=== PATIENT | male | born 1965 | race Asian ===

== ENCOUNTER 2019-05-26 09:48 | Outpatient (CLI) | payer BC ==
[~2019-05-26 09:48] MED LIST: ASPI-1100 PO; PRAV20TA4 PO
== END 2019-05-26 23:59 | disposition home or self-care (01) ==
LOC: CT 09:48
PROVIDERS: ATTEND Family Medicine
DX: Z12.2 Encounter for screening for malignant neoplasm of respiratory organs (principal); R91.1 Solitary pulmonary nodule; J84.10 Pulmonary fibrosis, unspecified; K76.0 Fatty (change of) liver, not elsewhere classified; K80.80 Other cholelithiasis without obstruction; Z87.891 Personal history of nicotine dependence
CPT/HCPCS: 71250-TC

== ENCOUNTER 2020-06-03 11:44 | Outpatient (CLI) | payer BC | END 2020-06-03 23:59 | disposition home or self-care (01) | LOC: RAD 11:44 | PROVIDERS: ATTEND Family Medicine | DX: S43.432A Superior glenoid labrum lesion of left shoulder, initial encounter (principal); M75.102 Unspecified rotator cuff tear or rupture of left shoulder, not specified as traumatic; M19.012 Primary osteoarthritis, left shoulder; M51.36 Other intervertebral disc degeneration, lumbar region; M25.512 Pain in left shoulder; M25.551 Pain in right hip; X58.XXXA Exposure to other specified factors, initial encounter; Y93.89 Activity, other specified; Y92.89 Other specified places as the place of occurrence of the external cause; Y99.8 Other external cause status | CPT/HCPCS: 73221-TC; 73502 ==

== ENCOUNTER 2020-06-23 09:42 | Outpatient (CLI) | payer BC ==
[2020-06-23 10:34] LABS: ALBUMIN 3.7 g/dL (3.4-5.0); BILIRUBIN,TOTAL 0.6 mg/dL (0.2-1.0); CALCIUM, SERUM 8.8 mg/dL (8.5-10.1); CREATININE 0.9 mg/dL (0.6-1.3); MAGNESIUM 2.3 mg/dL (1.8-2.4); POTASSIUM 3.7 mmol/L (3.5-5.1); TOTAL PROTEIN, SERUM 7.7 g/dL (6.4-8.2)
[2020-06-23 10:46] LABS: THYROID STIMULATING HORMONE 0.918 uIU/mL (0.358-3.74); URIC ACID 4.9 mg/dL (2.6-7.2)
[2020-06-23 11:05] LABS: BASOPHILS # (AUTO) 0.1 /CMM (0.0-0.2); BASOPHILS % (AUTO) 0.8 % (0.0-2.0); EOSINOPHILS % (AUTO) 3.2 % (0.0-6.0); HEMATOCRIT 48 % (39-51); HEMOGLOBIN 16.1 g/dL (13.5-17.5); LYMPHOCYTES # (AUTO) 2.4 /CMM (0.8-4.8); LYMPHOCYTES % (AUTO) 37.4 % (20.0-44.0); MEAN CORPUSCULAR HGB CONC 34 g/dl (31.0-36.0); MEAN CORPUSCULAR VOLUME 87 fL (80-96); MONOCYTES # (AUTO) 0.5 /CMM (0.1-1.30); MONOCYTES % (AUTO) 7.1 % (2.0-12.0); NEUTROPHILS # (AUTO) 3.4 /CMM (1.8-8.9); NEUTROPHILS % (AUTO) 51.5 % (43.0-81.0); PLATELET COUNT (AUTO) 294 /CMM (150-450); RED BLOOD CELL COUNT(AUTO) 5.48 MIL/uL (4.5-6.0); WHITE BLOOD COUNT (AUTO) 6.6 K/uL (4.3-11.0)
== END 2020-06-23 23:59 | disposition home or self-care (01) ==
LOC: LAB 09:42
PROVIDERS: ATTEND Family Medicine
DX: I10 Essential (primary) hypertension (principal); E55.9 Vitamin D deficiency, unspecified; K76.0 Fatty (change of) liver, not elsewhere classified
CPT/HCPCS: 36415; 80053-TC; 80061-TC; 82306; 82728-TC; 83540-TC; 83735-TC; 84439-TC; 84443-TC; 84550-TC; 85025-TC

== ENCOUNTER 2020-07-12 08:58 | Outpatient (CLI) | payer BC | END 2020-07-12 23:59 | disposition home or self-care (01) | LOC: CT 08:58 | PROVIDERS: ATTEND Family Medicine | DX: J98.4 Other disorders of lung (principal); R91.1 Solitary pulmonary nodule; J84.10 Pulmonary fibrosis, unspecified; K80.20 Calculus of gallbladder without cholecystitis without obstruction; K57.30 Diverticulosis of large intestine without perforation or abscess without bleeding | CPT/HCPCS: 71250-TC ==

== ENCOUNTER 2020-09-01 12:28 | Outpatient (CLI) | payer BC | END 2020-09-01 23:59 | disposition home or self-care (01) | LOC: LAB 12:28 | PROVIDERS: ATTEND Specialist | DX: Z01.812 Encounter for preprocedural laboratory examination (principal); Z20.828 Contact with and (suspected) exposure to other viral communicable diseases | CPT/HCPCS: 87426; C9803 ×2; U0003 ==

== ENCOUNTER 2020-09-08 08:18 | Day surgery (SDC) | payer BC ==
[2020-09-08] VITALS (7 sets, daily range): BP systolic 132–162; BP diastolic 73–116
[~2020-09-08] VITALS: Ht 167.6 cm; Wt 79.4 kg
--- NOTE | 2020-09-08 08:30 | NUR ---
RN MS NOTES PT ARRIVED AT THE MS UNIT, AMBULATORY, ALERT AND ORIENTED, ASSISTED TO ROOM, MADE COMFORTABLE, ROOM SET UP ORIENTATION PROVIDED TO PT, PLAN OF CARE DISCUSSED WITH PT, VERBALIZED UNDERSTANDING, VITALS TAKEN AND RECORDED.
--- NOTE | 2020-09-08 09:21 | NUR ---
RN MS NOTES PT SIGNED CONSENTS, NEW IV LINE ESTABLISHED AT RIGHT HAND G22, TOELRATED WELL, PICKED UP BY O.R. STAFF VIA BED, LEFT IN STABLE CONDITION.
[2020-09-08] MEDS ORDERED: PANT40TA49 PO (10:07)
[2020-09-08] MEDS ORDERED: OLME5TAB6 PO (10:07)
[2020-09-08] MEDS ORDERED: FOLI0.4T2 PO (10:07)
[2020-09-08] MEDS ORDERED: HYDR-3980 PO (10:07)
[2020-09-08] MEDS ORDERED: CHOL200010 PO (10:07)
[2020-09-08] MEDS ORDERED: BUPIVACAINE MPF W/EPI 0.25% 30 ML VIAL ONE (10:41)
[2020-09-08] MEDS ORDERED: LIDOCAINE 100MG/5ML DISP SYR ONE (10:42)
[2020-09-08] MEDS ORDERED: MIDAZOLAM HCL 2 MG/2ML VIAL ONE ×2 (10:43→11:10)
[2020-09-08] MEDS ORDERED: LIDOCAINE 1% INJ 50 ML MDV IJ ONE (11:01)
[2020-09-08] MEDS ORDERED: methylPREDNISolone ACETATE 80 MG/ML VIAL ONE (11:01)
[2020-09-08] MEDS ORDERED: EPINEPHRINE (1:1000) 1 MG/ML AMPUL ONE (11:02)
[2020-09-08] MEDS ORDERED: FLUMAZENIL 0.5 MG VIAL ONE (12:38)
[2020-09-08] MEDS ORDERED: HYDROMORPHONE 1 MG/1 ML DISP.SYRIN ONE (13:03)
--- NOTE | 2020-09-08 13:28 | NUR ---
RN MS NOTES PT BACK FROM SURGERY VIA BED, PT IS AWAKE, ALERT AND ORIENTED, COMPLAINS OF SLIGHT PAIN TO LEFT SHOULDER, SLING ON, NOT IN DISTRESS, VITALS TAKEN AND RECORDED, POST OP ORDERS RECEIVED FROM DR. HOOD, NOTED AND CARRIED OUT.
[2020-09-08] MEDS ORDERED: HYDROCODONE/APAP 5/325MG TABLET PO PRN ×2 (14:00)
[2020-09-08] MEDS ORDERED: CLONIDINE HCL 0.1 MG TABLET PO PRN (17:30)
--- NOTE | 2020-09-08 17:30 | NUR ---
RN MS NOTES PT IN BED, AWAKE, ALERT AND ORIENTED, PAIN MEDS GIVEN FOR PAIN MANAGEMENT, VERBALIZED RELIEF, NOTED WITH ELEVATED BP OF 177/99 HR 108, NO COMPLAINT OF HEADACHE OR DIZZINESS, PT ABLE TO SIT IN BED, NO BLEEDING NOTED TO LEFT ARM, SLING IN PLACE, DR. RIDER INFORMED, ORDERS GIVEN, NOTED AND CARRIED OUT, MED GIVEN ORDERED, WILL CONTINUE TO MONITOR.
--- NOTE | 2020-09-08 18:30 | NUR ---
RN MS NOTES PT SITTING IN BED, EATING DINNER, ENDORSED CARE TO INCOMING RN.
--- NOTE | 2020-09-08 20:45 | NUR ---
MS RN NOTES RECEIVED ON BED A/O X4,NO SOB,O2 IN USED TO KEEP O1 SAT ABOVE 90%.S/O LEFT SHOULDER ARTHROSCOPY TODAY BY DR HOOD,DRESSING INTACT AND DRY.SALINE LOCK RIGHT HAND INTACT AND PATENT.AWAITING DISCHARGE TO HOME WHEN SBP GOES DOWN BELOW 150.CALL LIGHT IN REACH,NEEDS ANTICIPATED.
--- NOTE | 2020-09-08 22:49 | NUR ---
MS RN NOTES BP 152/95,PULSE-104,DR AGUAYO MADE AWARE AND PATIENT WANTS TO GO HOME AND HE SAID "OKAY TO GO HOME"
--- NOTE | 2020-09-08 23:00 | NUR ---
MS RN NOTES PAIN TOLERABLE THIS TIME,DENIES HEADACHE,AMBULATORY.SALINE LOCK REMOVED. 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
== END 2020-09-08 18:00 | disposition home or self-care (01) ==
LOC: DS 08:18 → UNDOADMIN 08:19 → MED 08:19 → DS 18:00 → UNDODISIN 23:00
PROVIDERS: ATTEND Specialist
DX: M75.42 Impingement syndrome of left shoulder (principal); M65.812 Other synovitis and tenosynovitis, left shoulder; D64.9 Anemia, unspecified; M19.90 Unspecified osteoarthritis, unspecified site; E78.5 Hyperlipidemia, unspecified; I10 Essential (primary) hypertension; Z79.899 Other long term (current) drug therapy
CPT/HCPCS: 29822; 29824; A4217; A4565; C1713; J0171; J0690; J1100; J1170; J1885; J2001; J2250 ×2; J2405; J2704; J3490 ×5; G0378; J1040

== ENCOUNTER 2020-11-01 09:19 | Outpatient (CLI) | payer BC ==
[~2020-11-01 09:19] MED LIST changes: -ASPI-1100 PO; +CHOL200010 PO; +FOLI0.4T2 PO; +HYDR-3980 PO; +OLME5TAB6 PO; +PANT40TA49 PO
[2020-11-01 10:02] LABS: BASOPHILS # (AUTO) 0.1 /CMM (0.0-0.2); BASOPHILS % (AUTO) 1.1 % (0.0-2.0); EOSINOPHILS % (AUTO) 2.4 % (0.0-6.0); HEMATOCRIT 46 % (39-51); HEMOGLOBIN 15.4 g/dL (13.5-17.5); LYMPHOCYTES # (AUTO) 2.5 /CMM (0.8-4.8); LYMPHOCYTES % (AUTO) 39.3 % (20.0-44.0); MEAN CORPUSCULAR HGB CONC 33 g/dl (31.0-36.0); MEAN CORPUSCULAR VOLUME 87 fL (80-96); MONOCYTES # (AUTO) 0.4 /CMM (0.1-1.30); MONOCYTES % (AUTO) 6.7 % (2.0-12.0); NEUTROPHILS # (AUTO) 3.3 /CMM (1.8-8.9); NEUTROPHILS % (AUTO) 50.5 % (43.0-81.0); PLATELET COUNT (AUTO) 313 /CMM (150-450); RED BLOOD CELL COUNT(AUTO) 5.28 MIL/uL (4.5-6.0); WHITE BLOOD COUNT (AUTO) 6.5 K/uL (4.3-11.0)
[2020-11-01 10:25] LABS: BILIRUBIN,URINE NEGATIVE (NEGATIVE); BLOOD, URINE NEGATIVE Ery/uL (NEGATIVE); COLOR,URINE YELLOW (YELLOW); LEUKOCYTE ESTERASE ,URINE NEGATIVE (NEGATIVE); NITRITE, URINE NEGATIVE (NEGATIVE); PH,URINE 5.5 (5.0-8.0); PROTEIN,URINE NEGATIVE (NEGATIVE); UGLUCOSE NEGATIVE (NEGATIVE); UROBILINOGEN,URINE 0.2 EU/dL (0.2)
[2020-11-01 10:30] LABS: ALBUMIN 3.9 g/dL (3.4-5.0); BILIRUBIN,TOTAL 0.6 mg/dL (0.2-1.0); CALCIUM, SERUM 8.8 mg/dL (8.5-10.1); CREATININE 1.1 mg/dL (0.6-1.3); POTASSIUM 4.3 mmol/L (3.5-5.1); TOTAL PROTEIN, SERUM 8.2 g/dL (6.4-8.2)
[2020-11-01 10:42] LABS: THYROID STIMULATING HORMONE 1.021 uIU/mL (0.358-3.74)
== END 2020-11-01 23:59 | disposition home or self-care (01) ==
LOC: LAB 09:19
PROVIDERS: ATTEND Family Medicine
DX: I10 Essential (primary) hypertension (principal); E55.9 Vitamin D deficiency, unspecified; E78.2 Mixed hyperlipidemia; Z79.899 Other long term (current) drug therapy
CPT/HCPCS: 36415; 80053-TC; 80061-TC; 82306; 84439-TC; 84443-TC; 85025-TC

== ENCOUNTER 2021-01-20 08:00 | Outpatient (CLI) | payer BC ==
[2021-01-20 09:00] LABS: BILIRUBIN,URINE NEGATIVE (NEGATIVE); COLOR,URINE YELLOW (YELLOW); LEUKOCYTE ESTERASE ,URINE NEGATIVE (NEGATIVE); NITRITE, URINE NEGATIVE (NEGATIVE); PROTEIN,URINE NEGATIVE (NEGATIVE); UGLUCOSE NEGATIVE (NEGATIVE); UROBILINOGEN,URINE 0.2 EU/dL (0.2)
[2021-01-20 09:01] LABS: BASOPHILS # (AUTO) 0.1 /CMM (0.0-0.2); BASOPHILS % (AUTO) 0.7 % (0.0-2.0); EOSINOPHILS % (AUTO) 3.2 % (0.0-6.0); HEMATOCRIT 50 % (39-51); HEMOGLOBIN 16.9 g/dL (13.5-17.5); LYMPHOCYTES # (AUTO) 3.2 /CMM (0.8-4.8); LYMPHOCYTES % (AUTO) 36.1 % (20.0-44.0); MEAN CORPUSCULAR HGB CONC 34 g/dl (31.0-36.0); MEAN CORPUSCULAR VOLUME 87 fL (80-96); MONOCYTES # (AUTO) 0.5 /CMM (0.1-1.30); MONOCYTES % (AUTO) 5.7 % (2.0-12.0); NEUTROPHILS # (AUTO) 4.9 /CMM (1.8-8.9); NEUTROPHILS % (AUTO) 54.3 % (43.0-81.0); PLATELET COUNT (AUTO) 298 /CMM (150-450); RED BLOOD CELL COUNT(AUTO) 5.71 MIL/uL (4.5-6.0)
[2021-01-20 11:15] LABS: BILIRUBIN,TOTAL 0.7 mg/dL (0.2-1.0); CALCIUM, SERUM 9.1 mg/dL (8.5-10.1); CREATININE 1.3 mg/dL (0.6-1.3); POTASSIUM 4.4 mmol/L (3.5-5.1)
[2021-01-20 11:16] LABS: ALBUMIN 4.3 g/dL (3.4-5.0); TOTAL PROTEIN, SERUM 8.5 g/dL (6.4-8.2)
[2021-01-20 11:49] LABS: THYROID STIMULATING HORMONE 1.349 uIU/mL (0.358-3.74)
== END 2021-01-20 23:59 | disposition home or self-care (01) ==
LOC: LAB 08:00
PROVIDERS: ATTEND Family Medicine
DX: I10 Essential (primary) hypertension (principal)
CPT/HCPCS: 36415; 80053-TC; 80061-TC; 82306; 82384; 84439-TC; 84443-TC; 85025-TC

== ENCOUNTER 2021-01-31 10:10 | Outpatient (CLI) | payer BC ==
[~2021-01-31 10:10] MED LIST changes: -FOLI0.4T2 PO; +FOLI0.4T6 PO
[2021-01-31 11:24] LABS: ALBUMIN 4.1 g/dL (3.4-5.0); BILIRUBIN,DIRECT 0.1 mg/dL (0.0-0.2); BILIRUBIN,TOTAL 0.6 mg/dL (0.2-1.0); CREATININE 1.2 mg/dL (0.6-1.3); TOTAL PROTEIN, SERUM 8.3 g/dL (6.4-8.2)
[2021-01-31] MEDS ORDERED: IOHEXOL-300 100 ML VIAL IV ONE (11:46)
[2021-01-31] MEDS ORDERED: IV NS 0.9% 250 ML IV ONE (11:47)
[2021-01-31] MEDS ORDERED: IOHEXOL-350 100 ML VIAL IV ONE (11:47)
== END 2021-01-31 23:59 | disposition home or self-care (01) ==
LOC: CT 10:10
PROVIDERS: ATTEND Family Medicine
DX: K80.20 Calculus of gallbladder without cholecystitis without obstruction (principal); K76.0 Fatty (change of) liver, not elsewhere classified; I95.9 Hypotension, unspecified
CPT/HCPCS: 36415; 74170; 80076; 82565; 82977; 84520; 86706; 86709; 86803; 87340; J7050; Q9967 ×2

== ENCOUNTER 2021-03-03 08:05 | Outpatient (CLI) | payer BC ==
[2021-03-03 09:25] LABS: ALBUMIN 4.2 g/dL (3.4-5.0); BILIRUBIN,TOTAL 0.9 mg/dL (0.2-1.0); CALCIUM, SERUM 8.8 mg/dL (8.5-10.1); CREATININE 1.2 mg/dL (0.6-1.3); POTASSIUM 4.7 mmol/L (3.5-5.1); TOTAL PROTEIN, SERUM 8.7 g/dL (6.4-8.2)
[2021-03-03 09:30] LABS: BILIRUBIN,URINE NEGATIVE (NEGATIVE); LEUKOCYTE ESTERASE ,URINE NEGATIVE (NEGATIVE); NITRITE, URINE NEGATIVE (NEGATIVE); PROTEIN,URINE NEGATIVE (NEGATIVE); UGLUCOSE NEGATIVE (NEGATIVE); UROBILINOGEN,URINE 0.2 EU/dL (0.2)
[2021-03-03 09:32] LABS: FREE T4 (FREE THYROXINE) 1.11 ng/dL (0.76-1.46); THYROID STIMULATING HORMONE 1.001 uIU/mL (0.358-3.74)
[2021-03-03 09:36] LABS: COLOR,URINE STRAW (YELLOW)
[2021-03-03 09:44] LABS: BASOPHILS % (AUTO) 0.6 % (0.0-2.0); EOSINOPHILS % (AUTO) 2.9 % (0.0-6.0); HEMATOCRIT 50 % (39-51); HEMOGLOBIN 16.7 g/dL (13.5-17.5); LYMPHOCYTES # (AUTO) 3.1 /CMM (0.8-4.8); LYMPHOCYTES % (AUTO) 42.4 % (20.0-44.0); MEAN CORPUSCULAR HGB CONC 34 g/dl (31.0-36.0); MEAN CORPUSCULAR VOLUME 89 fL (80-96); MONOCYTES # (AUTO) 0.6 /CMM (0.1-1.30); MONOCYTES % (AUTO) 8.2 % (2.0-12.0); NEUTROPHILS # (AUTO) 3.3 /CMM (1.8-8.9); NEUTROPHILS % (AUTO) 45.9 % (43.0-81.0); PLATELET COUNT (AUTO) 283 /CMM (150-450); RED BLOOD CELL COUNT(AUTO) 5.61 MIL/uL (4.5-6.0); WHITE BLOOD COUNT (AUTO) 7.3 K/uL (4.3-11.0)
== END 2021-03-03 23:59 | disposition home or self-care (01) ==
LOC: LAB 08:05
PROVIDERS: ATTEND Family Medicine
DX: I10 Essential (primary) hypertension (principal)
CPT/HCPCS: 36415; 80053-TC; 80061-TC; 82306; 82384; 84439-TC; 84443-TC; 85025-TC

== ENCOUNTER 2021-04-25 08:02 | Outpatient (CLI) | payer BC ==
[2021-04-25 08:44] LABS: ALBUMIN 4.1 g/dL (3.4-5.0); BILIRUBIN,TOTAL 0.9 mg/dL (0.2-1.0); CREATININE 1.1 mg/dL (0.6-1.3); POTASSIUM 4.4 mmol/L (3.5-5.1); TOTAL PROTEIN, SERUM 8.4 g/dL (6.4-8.2)
== END 2021-04-25 23:59 | disposition home or self-care (01) ==
LOC: LAB 08:02
PROVIDERS: ATTEND Family Medicine
DX: I10 Essential (primary) hypertension (principal); E78.5 Hyperlipidemia, unspecified; R89.1 Abnormal level of hormones in specimens from other organs, systems and tissues
CPT/HCPCS: 36415; 80053-TC; 80061-TC

== ENCOUNTER → 2021-05-27 | Outpatient (CLI) | payer BC ==
[2021-05-27 09:36] LABS: CHOLESTEROL 234 mg/dL (<200); HDL CHOLESTEROL 42 mg/dL (40-60); LDL 160 mg/dL (0-99); TRIGLYCERIDES 105 mg/dL (30-150)
== END | disposition home or self-care (01) ==
LOC: LAB 08:07
PROVIDERS: ATTEND Internal Medicine
DX: I10 Essential (primary) hypertension (principal)
CPT/HCPCS: 36415; 80061-TC

== ENCOUNTER 2022-01-03 08:56 | Outpatient (CLI) | payer BC | END 2022-01-03 23:59 | disposition home or self-care (01) | LOC: RAD 08:56 | PROVIDERS: ATTEND Family Medicine | DX: R06.2 Wheezing (principal); M47.814 Spondylosis without myelopathy or radiculopathy, thoracic region | CPT/HCPCS: 71046 ==

== ENCOUNTER 2022-01-19 09:59 | Outpatient (CLI) | payer BC | END 2022-01-19 23:59 | disposition home or self-care (01) | LOC: CT 09:59 | PROVIDERS: ATTEND Family Medicine | DX: I25.10 Atherosclerotic heart disease of native coronary artery without angina pectoris (principal); I70.0 Atherosclerosis of aorta; K80.20 Calculus of gallbladder without cholecystitis without obstruction; R91.1 Solitary pulmonary nodule | CPT/HCPCS: 71250-TC ==

== ENCOUNTER 2022-02-02 07:55 | Outpatient (CLI) | payer BC ==
[2022-02-02 09:15] LABS: CREATININE 1.2 mg/dL (0.6-1.3)
[2022-02-02] MEDS ORDERED: CT SWABBABLE VALVE TRANS SET 1 EA INFUS.SET MC ONE (09:26)
[2022-02-02] MEDS ORDERED: IV NS 0.9% 250 ML IV ONE (09:26)
[2022-02-02] MEDS ORDERED: IOHEXOL-300 100 ML VIAL IV ONE (09:26)
== END 2022-02-02 23:59 | disposition home or self-care (01) ==
LOC: CT 07:55
PROVIDERS: ATTEND Family Medicine
DX: K80.71 Calculus of gallbladder and bile duct without cholecystitis with obstruction (principal); I25.10 Atherosclerotic heart disease of native coronary artery without angina pectoris; K40.90 Unilateral inguinal hernia, without obstruction or gangrene, not specified as recurrent; K76.0 Fatty (change of) liver, not elsewhere classified; R77.8 Other specified abnormalities of plasma proteins; I70.0 Atherosclerosis of aorta; M47.816 Spondylosis without myelopathy or radiculopathy, lumbar region
CPT/HCPCS: 36415; 74178; 82565; 82728; 84520; J7050; Q9967

== ENCOUNTER 2022-12-28 08:08 | Outpatient (CLI) | payer BC ==
[2022-12-28 09:29] LABS: BASOPHILS % (AUTO) 0.7 % (0.0-2.0); EOSINOPHILS % (AUTO) 5.4 % (0.0-6.0); HEMATOCRIT 48 % (39-51); HEMOGLOBIN 15.9 g/dL (13.5-17.5); LYMPHOCYTES % (AUTO) 42.6 % (20.0-44.0); MEAN CORPUSCULAR HGB CONC 33 g/dl (31.0-36.0); MEAN CORPUSCULAR VOLUME 86 fL (80-96); MONOCYTES # (AUTO) 0.5 K/uL (0.1-1.30); MONOCYTES % (AUTO) 7.3 % (2.0-12.0); NEUTROPHILS # (AUTO) 3.1 K/uL (1.8-8.9); PLATELET COUNT (AUTO) 311 K/uL (150-450); RED BLOOD CELL COUNT(AUTO) 5.63 MIL/uL (4.5-6.0); WHITE BLOOD COUNT (AUTO) 7.1 K/uL (4.3-11.0)
[2022-12-28 09:34] LABS: BILIRUBIN,URINE NEGATIVE (NEGATIVE); COLOR,URINE YELLOW (YELLOW); LEUKOCYTE ESTERASE ,URINE NEGATIVE (NEGATIVE); NITRITE, URINE NEGATIVE (NEGATIVE); PROTEIN,URINE NEGATIVE (NEGATIVE); UGLUCOSE NEGATIVE (NEGATIVE); UROBILINOGEN,URINE 0.2 EU/dL (0.2)
[2022-12-28 09:57] LABS: THYROID STIMULATING HORMONE 0.594 uIU/mL (0.358-3.74)
[2022-12-28 10:09] LABS: ALBUMIN 4.1 g/dL (3.4-5.0); BILIRUBIN,TOTAL 0.9 mg/dL (0.2-1.0); CALCIUM, SERUM 8.9 mg/dL (8.5-10.1); CREATININE 1.2 mg/dL (0.6-1.3); MAGNESIUM 2.2 mg/dL (1.8-2.4); TOTAL PROTEIN, SERUM 8.5 g/dL (6.4-8.2)
== END 2022-12-28 23:59 | disposition home or self-care (01) ==
LOC: LAB 08:08
PROVIDERS: ATTEND Family Medicine
DX: I10 Essential (primary) hypertension (principal); R79.9 Abnormal finding of blood chemistry, unspecified; E55.9 Vitamin D deficiency, unspecified
CPT/HCPCS: 36415; 80053-TC; 80061-TC; 82306; 82607-TC; 82728-TC; 83540-TC; 83735-TC; 84439-TC; 84443-TC; 84481; 84550-TC; 85025-TC

== ENCOUNTER 2024-03-03 07:56 | Day surgery (SDC) | payer BC ==
[2024-03-03] MEDS ORDERED: SIMETHICONE SUSP 40 MG/0.6 ML BOTTLE ONE (10:21)
== END 2024-03-03 11:30 | disposition home or self-care (01) ==
LOC: DS 07:56
PROVIDERS: ATTEND Surgery
DX: R10.13 Epigastric pain (principal); K44.9 Diaphragmatic hernia without obstruction or gangrene; K29.50 Unspecified chronic gastritis without bleeding; I10 Essential (primary) hypertension; E78.5 Hyperlipidemia, unspecified; K21.9 Gastro-esophageal reflux disease without esophagitis; Z98.890 Other specified postprocedural states; Z79.899 Other long term (current) drug therapy
CPT/HCPCS: 43239; 88342; 88313; 88305; J2704; J7030; J3490

== ENCOUNTER 2024-06-26 08:32 | Outpatient (CLI) | payer BC ==
[2024-06-26] MEDS ORDERED: GADOTERATE MEGLUMINE 10 MMOL/20 ML VIAL IV ONE (08:33)
[2024-06-26 09:13] LABS: CREATININE 1.2 mg/dL (0.6-1.3)
== END 2024-06-26 23:59 | disposition home or self-care (01) ==
LOC: LAB 08:32
PROVIDERS: ATTEND Family Medicine
DX: K76.0 Fatty (change of) liver, not elsewhere classified (principal); R77.8 Other specified abnormalities of plasma proteins
CPT/HCPCS: 74183; 84520; 82565; 36415; A9575